=== PATIENT | male | born 1990 | race Caucasian/White ===

== ENCOUNTER 2016-05-17 15:41 | Emergency (ER) | payer BC, OTHER ==
[~2016-05-17] VITALS: Ht 175.3 cm; Wt 74.6 kg
[2016-05-17 18:26] LABS: Urine Bilirubin Negative (Negative); Urine Color Brown (Yellow); Urine Glucose TRACE mg/dL (Normal); Urine Hyaline Cast MOD /lpf (0 - 2); Urine Ketone TRACE (Negative); Urine Mucus MODERATE (None Seen); Urine Nitrite Negative (Negative); Urine RBC 5 /hpf (0 - 3); Urine Squamous Epithelial Cell MOD /hpf (<5); Urine Urobilinogen Normal (Negative)
[2016-05-17 18:27] LABS: Urine Blood 1+ /uL (Negative)
[2016-05-17] MEDS ORDERED: ONDANSETRON HCL 4 MG/2 ML VIAL IV ONE (18:30)
[2016-05-17] MEDS ORDERED: SODIUM CHLORIDE 0.9% 1,000 ML IV ONE (18:30)
[2016-05-17] MEDS ORDERED: HYDROmorphone HCL 2 MG/ML VL IV ONE (18:30)
[2016-05-17] MEDS ORDERED: LIDOCAINE VISCOUS 2% 15ML UD PO ONE (18:45)
[2016-05-17] MEDS ORDERED: PANTOPRAZOLE SODIUM 40 MG/10 ML VIAL IV ONE (18:45)
[2016-05-17] MEDS ORDERED: ALUM & MAG HYDROX-SIMETH LIQ(MAALOX) 30 ML PO ONE (18:45)
[2016-05-17] MEDS ORDERED: DONNATAL 5ml ORAL Elix (BELLADONNA ALK-PHENOBARB) PO ONE (18:45)
[2016-05-17 19:12] LABS: Basophils # (auto) 0 uL; Eosinophils # (auto) 0 uL; Hematocrit 51.5 % (41.0-53.0); Hemoglobin 17.4 g/dL (13.5-17.5); Lymphocytes # (auto) 0.6 uL; Lymphocytes % (auto) 8.8 % (10.0-50.0); Mean Corpuscular Hemoglobin 29.7 pg (28.0-32.0); Mean Corpuscular Hgb Conc. 33.7 g/dL (32.0-36.0); Mean Corpuscular Volume 88.2 fL (80.0-100.0); Mean Platelet Volume 7.7 fL (7.4-10.4); Monocytes # (auto) 0.7 uL; Monocytes % (auto) 9.3 % (0.0-12.0); Neutrophils % (auto) 81.9 % (37.0-80.0); Platelet Count (auto) 184 10^3/uL (140-450); Red Cell Distribution Width 12.3 % (11.6-16.0); White Blood Cell 7.3 10^3/uL (4.4-10.8)
[2016-05-17 19:41] LABS: Albumin 4.1 g/dL (3.4-5.0); BUN/Creatinine Ratio 16.1; Bilirubin, Total 0.8 mg/dL (0.2-1.0); Calcium 9.9 mg/dL (8.5-10.1); Potassium 3.3 mmol/L (3.5-5.1); Total Protein 9.2 g/dL (6.4-8.2)
[2016-05-17 20:14] LABS: Amylase 29 U/L (25-115)
[2016-05-17] MEDS ORDERED: POTASSIUM CHL 10% (20 MEQ/15ML) ORAL SOLN PO ONE (20:45)
[2016-05-17 21:02] VITALS: BP 131/67
== END 2016-05-17 21:12 | disposition home or self-care (01) ==
LOC: ER 15:52
DX: K52.9 Noninfective gastroenteritis and colitis, unspecified (principal); K21.9 Gastro-esophageal reflux disease without esophagitis; E86.0 Dehydration; Z88.1 Allergy status to other antibiotic agents; F12.10 Cannabis abuse, uncomplicated; F17.210 Nicotine dependence, cigarettes, uncomplicated
CPT/HCPCS: 36415; 74176; 80053; 80320; 81001; 82150; 83690; 85025; 85049; 96361; 96374; 96375; 99285; C9113; G0434; J1170; J2405; J7030

== ENCOUNTER 2017-03-09 10:31 | Emergency (ER) | payer BC, OTHER ==
[~2017-03-09] VITALS: Ht 177.8 cm; Wt 81.6 kg
[2017-03-09 10:57] VITALS: BP 122/83
[2017-03-09] MEDS ORDERED: KETOROLAC TROMETH 60MG/2ML VIAL IM ONE (13:00)
== END 2017-03-09 13:15 | disposition home or self-care (01) ==
LOC: ER 10:31
DX: S29.011A Strain of muscle and tendon of front wall of thorax, initial encounter (principal); G89.29 Other chronic pain; M54.5 Low back pain; F17.210 Nicotine dependence, cigarettes, uncomplicated; F12.10 Cannabis abuse, uncomplicated; Z88.2 Allergy status to sulfonamides; K21.9 Gastro-esophageal reflux disease without esophagitis; X50.0XXA Overexertion from strenuous movement or load, initial encounter; Y93.89 Activity, other specified; Y99.8 Other external cause status; Y92.89 Other specified places as the place of occurrence of the external cause
CPT/HCPCS: 71020; 96372; 99284; J1885

== ENCOUNTER 2018-09-17 06:06 | Emergency (ER) | payer SELFPAY ==
[~2018-09-17] VITALS: Ht 175.3 cm; Wt 77.1 kg
[2018-09-17] MEDS ORDERED: TETRACAINE HCL 0.5% OPTH(EYE) SOLN 4ML EACHEYE ONE (06:30)
[2018-09-17 06:45] VITALS: BP 147/82
[2018-09-17] MEDS ORDERED: FLUORESCEIN SOD 1 MG TEST STRIP OP ONE (06:45)
== END 2018-09-17 07:08 | disposition home or self-care (01) ==
LOC: ER 06:10
DX: T15.92XA Foreign body on external eye, part unspecified, left eye, initial encounter (principal); F17.210 Nicotine dependence, cigarettes, uncomplicated; F12.10 Cannabis abuse, uncomplicated; Z88.2 Allergy status to sulfonamides; W45.8XXA Other foreign body or object entering through skin, initial encounter; Y93.89 Activity, other specified; Y99.8 Other external cause status; Y92.89 Other specified places as the place of occurrence of the external cause